=== PATIENT | male | born 1965 | race Caucasian/White ===

== ENCOUNTER 2017-01-01 22:51 | Observation (INO) | payer BC ==
[~2017-01-01] VITALS: Ht 177.8 cm; Wt 66.5 kg
[2017-01-01 23:36] LABS: HEMATOCRIT 41.5 % (38.0-50.0); MCH 31.4 PG (29.0-34.0); MCHC 35.7 G/DL (30.0-36.0); MCV 87.9 FL (86-99); MEAN PLAT.VOLUME 11.6 uM^3 (9.0-12.4); PLATELET COUNT 166 K/uL (156-360); RBC DIS.WIDTH-CV 12.7 % (11.8-14.6); RBC DIS.WIDTH-SD 39.9 % (39-53); RED BLOOD COUNT 4.72 M/uL (4.00-5.50); WHITE BLOOD COUNT 6.8 K/uL (4.1-10.2)
[2017-01-01 23:41] LABS: CHLORIDE 107 mEq/L (99-109); POTASSIUM 3.6 mEq/L (3.7-5.4); SODIUM 141 mEq/L (136-147)
[2017-01-01 23:43] LABS: GLUCOSE 105 mg/dL (70-99)
[2017-01-01 23:44] LABS: ANION GAP 11 MEQ/L (2-14)
[2017-01-01 23:47] LABS: GFR ESTIMATE (CALCULATED) > 59 mL/min/
[2017-01-01 23:48] LABS: UREA NITROGEN (BUN) 16 mg/dL (9-23)
[2017-01-01 23:53] LABS: TROP-I INTERPRETATION NEGATIVE; TROPONIN-I 0.01 ng/mL (0.0-0.30)
[2017-01-02 02:58] LABS: TOTAL BILIRUBIN 0.9 mg/dL (0.0-1.0)
[2017-01-02 02:59] LABS: ALKALINE PHOSPHATASE 66 IU/L (3-129)
[2017-01-02 03:01] LABS: DIRECT BILIRUBIN 0.3 mg/dL (0.0-0.3)
[2017-01-02 03:02] LABS: LIPASE 20 U/L (1.0-51.0)
[2017-01-02 03:23] LABS: TROP-I INTERPRETATION NEGATIVE; TROPONIN-I < 0.01 ng/mL (0.0-0.30)
[2017-01-02 07:39] VITALS: BP 121/72
[2017-01-02 10:45] LABS: TROP-I INTERPRETATION NEGATIVE; TROPONIN-I < 0.01 ng/mL (0.0-0.30)
[2017-01-02] MEDS ORDERED: ASPIR 8181 M1 PO (11:14)
[2017-01-02] MEDS ORDERED: PANTOPRAZOLE SO40 MG PO (11:14)
[2017-01-02 11:32] VITALS: BP 102/72
[2017-01-02 12:28] LABS: D-DIMER ELISA < 0.15 mg/L FEU (< 0.57)
== END 2017-01-02 14:48 | disposition home or self-care (01) ==
LOC: EME 22:51 → EDOF 01-02 04:56 → 5WEST 01-02 07:27
PROVIDERS: Emergency Medicine; Hospitalist; Internal Medicine
DX: R07.89 Other chest pain (principal); K21.9 Gastro-esophageal reflux disease without esophagitis; Z87.891 Personal history of nicotine dependence; Z82.49 Family history of ischemic heart disease and other diseases of the circulatory system
CPT/HCPCS: 71020; 80048; 80076; 83690; 84484; 85027; 85379; 87651 90; 93005; 99281; 99284; G0378; J1650; J7030